=== PATIENT | female | born 1995 | race African-American/Black ===

== ENCOUNTER 2016-08-10 20:04 | Emergency (ER) | payer MEDICAID ==
[2011-01-27 10:52] VITALS: BMI 27.2
[2016-08-10 20:58] LABS: APPEARANCE CLEAR (CLEAR); BILIRUBIN NEGATIVE (NEGATIVE); COLOR DK YELLOW (YELLOW); GLUCOSE NEGATIVE (NEGATIVE); KETONE NEGATIVE (NEGATIVE); LEUKOCYTE ESTERASE NEGATIVE (NEGATIVE); NITRITE NEGATIVE (NEGATIVE); PROTEIN NEGATIVE (NEGATIVE); SPECIFIC GRAVITY 1.015 (1.005-1.020); UROBILINOGEN NORMAL (NORMAL)
[2016-08-10 20:59] LABS: BACTERIA FEW /hpf (NONE SEEN); EPITHELIAL CELLS 0-5 /hpf (0-5); RED CELLS - URINE 0-5 /hpf (0-5); WHITE CELLS - URINE 0-5 /hpf (0-5)
== END 2016-08-10 22:25 | disposition home or self-care (01) ==
LOC: D.ER 20:04
PROVIDERS: Emergency Medicine
DX: K08.89 Other specified disorders of teeth and supporting structures (principal)

== ENCOUNTER 2017-12-06 15:33 | Emergency (ER) | payer MEDICAID ==
[~2017-12-06] VITALS: Ht 162.6 cm; Wt 101.4 kg
[2017-12-06 16:10] VITALS: Ht 162.6 cm; Wt 101.4 kg
[2017-12-06 16:36] LABS: APPEARANCE HAZY (CLEAR); BILIRUBIN NEGATIVE (NEGATIVE); COLOR YELLOW (YELLOW); GLUCOSE NEGATIVE (NEGATIVE); KETONE NEGATIVE (NEGATIVE); NITRITE NEGATIVE (NEGATIVE); PROTEIN NEGATIVE (NEGATIVE); SPECIFIC GRAVITY 1.025 (1.005-1.020); UROBILINOGEN NORMAL (NORMAL)
[2017-12-06 16:38] LABS: BASOPHILS 0.2 % (0-2); EOSINOPHILS 0.4 % (0-7); HEMATOCRIT 42.8 % (36.0-48.0); HEMOGLOBIN 14.3 g/dL (12-16); IMMATURE GRANULOCYTES 0.1 % (0-5); LYMPHOCYTES 21.2 % (15-50); MCH 26.5 pg (26.0-34.0); MCHC 33.4 g/dL (31.0-37.0); MCV 79.4 fL (80.0-100.0); MEAN PLATELET VOLUME 11.2 fL (7.4-10.4); MONOCYTES 6.1 % (2-11); PLATELET COUNT 266 10x3/uL (130-400); RBC 5.39 10x6/uL (4.00-5.40); WBC 11.7 10x3/uL (4.8-10.8)
[2017-12-06 16:50] LABS: BACTERIA MANY /hpf (NONE SEEN); WHITE CELLS - URINE 25-50 /hpf (0-5)
[2017-12-06 16:51] LABS: MUCUS <1+ /lpf (NONE SEEN)
[2017-12-06 16:55] LABS: ALBUMIN 3.8 g/dL (3.4-5.0); ALKALINE PHOSPHATASE 68 U/L (46-116); ALT (SGPT) 22 U/L (10-68); BILIRUBIN - TOTAL 0.18 mg/dL (0.2-1.3); CALC OSMOLALITY 277 mosm/kg (275-300); CALCIUM 9.2 mg/dL (8.5-10.1); CARBON DIOXIDE 24.9 mmol/L (21.0-32.0); CHLORIDE - SERUM 104 mmol/L (98-107); CREATININE - SERUM 0.9 mg/dL (0.6-1.3); GLUCOSE 80 mg/dL (74-106); POTASSIUM - SERUM 3.2 mmol/L (3.5-5.1); PROTEIN - SERUM 8.1 g/dL (6.4-8.2); SODIUM 140 mmol/L (136-145); UREA NITROGEN 12 mg/dL (7-18); eGFR NON AFRICAN AMERICAN 82 mL/min (90-120)
[2017-12-06 17:56] LABS: HCG SERUM NEGATIVE (NEGATIVE)
[2017-12-06] MEDS ORDERED: TORADOL10 MG PO (18:18)
[2017-12-06 19:17] VITALS: BP 102/69
[2017-12-09 16:09] LABS: CHLAMYDIA TRACHOMATIS, NAA Negative (Negative)
== END 2017-12-06 19:12 | disposition home or self-care (01) ==
LOC: D.ER 15:33
PROVIDERS: Emergency Medicine
DX: R10.32 Left lower quadrant pain (principal); Z87.42 Personal history of other diseases of the female genital tract; A59.01 Trichomonal vulvovaginitis; N39.0 Urinary tract infection, site not specified; N93.9 Abnormal uterine and vaginal bleeding, unspecified

== ENCOUNTER 2018-12-29 12:30 | Emergency (ER) | payer MEDICAID ==
[~2018-12-29] VITALS: Ht 162.6 cm; Wt 95.5 kg
[~2018-12-29 12:30] MED LIST: TORADOL10 MG PO
[2018-12-29 12:41] VITALS: Ht 162.6 cm; Wt 95.5 kg
[2018-12-29] MEDS ORDERED: PEPCID AC20 MG PO (12:43)
[2018-12-29] MEDS ORDERED: ZOFRAN ODT4 MG/UDTAB PO (12:44)
[2018-12-29 13:36] LABS: BASOPHILS 0.1 % (0-2); EOSINOPHILS 0.4 % (0-7); HEMATOCRIT 44.2 % (36.0-48.0); HEMOGLOBIN 14.7 g/dL (12-16); IMMATURE GRANULOCYTES 0.2 % (0-5); LYMPHOCYTES 16.5 % (15-50); MCH 27.4 pg (26.0-34.0); MCHC 33.3 g/dL (31.0-37.0); MCV 82.3 fL (80.0-100.0); MEAN PLATELET VOLUME 11.2 fL (7.4-10.4); MONOCYTES 4.5 % (2-11); NEUTROPHILS 78.3 % (40-80); RBC 5.37 10x6/uL (4.00-5.40); RDW 15.1 % (11.5-14.5); WBC 11.2 10x3/uL (4.8-10.8)
[2018-12-29 13:38] LABS: PLATELET COUNT 204 10x3/uL (130-400)
[2018-12-29 13:39] LABS: APPEARANCE CLEAR (CLEAR); BILIRUBIN NEGATIVE (NEGATIVE); COLOR YELLOW (YELLOW); GLUCOSE NEGATIVE (NEGATIVE); KETONE NEGATIVE (NEGATIVE); NITRITE NEGATIVE (NEGATIVE); PROTEIN NEGATIVE (NEGATIVE); UROBILINOGEN NORMAL (NORMAL)
[2018-12-29 13:50] LABS: CALC OSMOLALITY 277 mosm/kg (275-300); CALCIUM 8.5 mg/dL (8.5-10.1); CARBON DIOXIDE 23.4 mmol/L (21.0-32.0); CHLORIDE - SERUM 108 mmol/L (98-107); CREATININE - SERUM 0.7 mg/dL (0.6-1.3); GLUCOSE 82 mg/dL (74-106); POTASSIUM - SERUM 3.6 mmol/L (3.5-5.1); SODIUM 141 mmol/L (136-145); UREA NITROGEN 8 mg/dL (7-18); eGFR NON AFRICAN AMERICAN > 90 mL/min (90-120)
[2018-12-29 13:54] LABS: HCG SERUM POSITIVE (NEGATIVE)
[2018-12-29 13:57] LABS: ALKALINE PHOSPHATASE 56 U/L (46-116); ALT (SGPT) 33 U/L (10-68); BILIRUBIN - TOTAL 0.16 mg/dL (0.2-1.3); PROTEIN - SERUM 6.8 g/dL (6.4-8.2)
[2018-12-29] MEDS ORDERED: ZOFRAN4 MG PO (15:05)
[2018-12-29 15:27] VITALS: BP 122/70
== END 2018-12-29 15:28 | disposition home or self-care (01) ==
LOC: D.ER 12:30
PROVIDERS: Family Medicine
DX: O26.891 Other specified pregnancy related conditions, first trimester (principal); R11.2 Nausea with vomiting, unspecified; Z3A.13 13 weeks gestation of pregnancy

== ENCOUNTER 2019-02-09 10:45 | Emergency (ER) | payer MEDICAID ==
[~2019-02-09] VITALS: Ht 162.6 cm; Wt 98.6 kg
[~2019-02-09 10:45] MED LIST changes: +PEPCID AC20 MG PO; +ZOFRAN ODT4 MG/UDTAB PO; +ZOFRAN4 MG PO
[2019-02-09 10:53] VITALS: Ht 162.6 cm; Wt 98.6 kg
[2019-02-09 11:25] LABS: APPEARANCE CLEAR (CLEAR); BILIRUBIN NEGATIVE (NEGATIVE); COLOR YELLOW (YELLOW); GLUCOSE NEGATIVE (NEGATIVE); KETONE NEGATIVE (NEGATIVE); NITRITE NEGATIVE (NEGATIVE); PROTEIN NEGATIVE (NEGATIVE); RED CELLS - URINE OCC /hpf (0-5); UROBILINOGEN NORMAL (NORMAL); WHITE CELLS - URINE 0-5 /hpf (NEGATIVE)
[2019-02-09 11:26] LABS: BACTERIA MANY /hpf (NEGATIVE); MUCUS <1+ /lpf (NONE SEEN)
[2019-02-09] MEDS ORDERED: FLAGYL500 MG PO (12:03)
[2019-02-09 12:11] VITALS: BP 136/82
== END 2019-02-09 12:12 | disposition home or self-care (01) ==
LOC: D.ER 10:45
PROVIDERS: Family Medicine
DX: O26.891 Other specified pregnancy related conditions, first trimester (principal); Z3A.13 13 weeks gestation of pregnancy; N76.0 Acute vaginitis

== ENCOUNTER 2019-03-03 14:44 | Outpatient (CLI) | payer MEDICAID ==
[2019-02-09 10:53] VITALS: BMI 37.3
[~2019-03-03 14:44] MED LIST changes: +FLAGYL500 MG PO
[2019-03-03 16:12] LABS: BASOPHILS 0.1 % (0-2); EOSINOPHILS 0.4 % (0-7); HEMATOCRIT 43.5 % (36.0-48.0); HEMOGLOBIN 14.7 g/dL (12-16); IMMATURE GRANULOCYTES 0.2 % (0-5); LYMPHOCYTES 14.6 % (15-50); MCH 27.6 pg (26.0-34.0); MCHC 33.8 g/dL (31.0-37.0); MCV 81.8 fL (80.0-100.0); MEAN PLATELET VOLUME 11.8 fL (7.4-10.4); MONOCYTES 6.6 % (2-11); NEUTROPHILS 78.1 % (40-80); RBC 5.32 10x6/uL (4.00-5.40); RDW 14.8 % (11.5-14.5); WBC 13.4 10x3/uL (4.8-10.8)
[2019-03-03 16:14] LABS: PLATELET COUNT 159 10x3/uL (130-400)
[2019-03-03 16:15] LABS: APPEARANCE CLEAR (CLEAR); BILIRUBIN NEGATIVE (NEGATIVE); COLOR YELLOW (YELLOW); GLUCOSE NEGATIVE (NEGATIVE); KETONE NEGATIVE (NEGATIVE); NITRITE NEGATIVE (NEGATIVE); PROTEIN NEGATIVE (NEGATIVE); UROBILINOGEN NORMAL (NORMAL)
[2019-03-03 16:42] LABS: CALC OSMOLALITY 281 mosm/kg (275-300); CARBON DIOXIDE 24.4 mmol/L (21.0-32.0); CHLORIDE - SERUM 109 mmol/L (98-107); CREATININE - SERUM 0.7 mg/dL (0.6-1.3); GLUCOSE 71 mg/dL (74-106); POTASSIUM - SERUM 3.9 mmol/L (3.5-5.1); SODIUM 143 mmol/L (136-145); UREA NITROGEN 9 mg/dL (7-18); eGFR NON AFRICAN AMERICAN > 90 mL/min (90-120)
[2019-03-03 16:48] LABS: ALBUMIN 2.5 g/dL (3.4-5.0); ALKALINE PHOSPHATASE 85 U/L (46-116); ALT (SGPT) 37 U/L (10-68); BILIRUBIN - TOTAL 0.27 mg/dL (0.2-1.3)
[2019-03-03 17:52] LABS: UDS - AMPHET NEGATIVE QUAL (NEGATIVE); UDS - BARB NEGATIVE QUAL (NEGATIVE); UDS - BENZO NEGATIVE QUAL (NEGATIVE); UDS - COCAINE NEGATIVE QUAL (NEGATIVE); UDS - OPIATE NEGATIVE QUAL (NEGATIVE); UDS - PCP NEGATIVE QUAL (NEGATIVE); UDS - THC POSITIVE QUAL (NEGATIVE)
== END 2019-03-04 17:00 | disposition home or self-care (01) ==
LOC: D.LDO 14:44 → D.LD 20:25 → D.LDO 03-04 17:00
PROVIDERS: ATTEND Student in an Organized Health Care Education/Training Program
DX: O26.899 Other specified pregnancy related conditions, unspecified trimester (principal); Z3A.00 Weeks of gestation of pregnancy not specified; R10.13 Epigastric pain

== ENCOUNTER 2020-07-09 11:37 | Emergency (ER) | payer BC ==
[~2020-07-09] VITALS: Ht 162.6 cm; Wt 100.1 kg
[2020-07-09 11:42] VITALS: Ht 162.6 cm; Wt 100.1 kg
[2020-07-09 12:19] LABS: HCG URINE NEGATIVE (NEGATIVE)
[2020-07-09 14:25] VITALS: BP 101/57
== END 2020-07-09 13:20 | disposition home or self-care (01) ==
LOC: D.ER 11:37
PROVIDERS: Family Medicine
DX: K21.9 Gastro-esophageal reflux disease without esophagitis (principal); R07.89 Other chest pain